=== PATIENT | male | born 1960 | race Caucasian/White ===

== ENCOUNTER → 2020-04-29 | Outpatient (CLI) | payer OTHER | LOC: MRI 09:49 | PROVIDERS: ATTEND Family Medicine | DX: I63.9 Cerebral infarction, unspecified (principal) ==

== ENCOUNTER 2021-03-08 14:23 | Inpatient (IN) | payer OTHER ==
[~2021-03-08] VITALS: Ht 172.7 cm; Wt 65.0 kg
[2021-03-08 14:34] VITALS: BP 136/89
[2021-03-08 15:49] LABS: HEMATOCRIT 44.1 % (42.0-52.0); HEMOGLOBIN 14.6 gm/dL (14.0-18.0); MCHC 33.1 g/dL (28.0-37.0); MCV 90.8 fL (80.0-100.0); PLATELET COUNT 226 thou/uL (150-400); RBC 4.85 mil/uL (4.50-6.00); RDW 13.6 % (10.5-14.5); WBC 22.2 thou/uL (4.0-11.0)
[2021-03-08 15:52] LABS: CREATININE 1.4 mg/dL (0.7-1.3); POTASSIUM 3.9 mmol/L (3.5-5.1)
--- NOTE | 2021-03-08 15:55 | EKG ---
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 : 1960 Requested By: Tyrell Ch Order Number: [id number] MD: Demetris Rasheed Measurements Intervals [place] Rate: 107 P: 66 SC: 127 QRS: 77 QRSD: 94 T: 21 QT: 335 QTc: 447 Interpretive Statements Sinus tachycardia Left atrial enlargement Probable left ventricular hypertrophy No previous ECG available for comparison Electronically Signed On 03-08-2021 15:55:17 CDT by Demetris Rasheed [email or web address] <ELECTRONICALLY SIGNED> By: Demetris Rasheed MD, [facility] 03/08/21 1555 1441 1441 Demetris Rasheed MD, FACC /EPI
[2021-03-08 16:03] LABS: ALBUMIN 3.6 g/dL (3.4-5.0); TOTAL PROTEIN 7.8 g/dL (6.4-8.2)
[2021-03-08 18:32] LABS: URINE BILIRUBIN NEGATIVE (Negative); URINE BLOOD NEGATIVE (Negative); URINE CLARITY CLEAR; URINE COLOR YELLOW; URINE GLUCOSE-RANDOM* NEGATIVE (Negative); URINE KETONES NEGATIVE (Negative); URINE LEUKOCYTES-REFLEX NEGATIVE (Negative); URINE NITRITE-REFLEX NEGATIVE (Negative); URINE PROTEIN (DIPSTICK) NEGATIVE (Negative); URINE SPECIFIC GRAVITY <= 1.005 (1.005-1.035); URINE UROBILINOGEN 0.2 E.U./dl (0.2-1.0)
[2021-03-08 18:48] LABS: ABSOLUTE NEUTROPHILS 19.3 thou/uL (1.4-8.2); LARGE PLATELETS RARE
[2021-03-08 18:49] LABS: PLATELET ESTIMATE NORMAL
[2021-03-08 19:52] VITALS: BP 123/76
[2021-03-08 19:57] VITALS: BP 123/76
[2021-03-08 22:20] VITALS: BP 116/74
[2021-03-08 23:00] VITALS: BP 119/74
[2021-03-09 00:20] VITALS: BP 121/72
[2021-03-09 03:42] VITALS: BP 132/86
--- NOTE | 2021-03-09 03:52 | NUR ---
PT WAS ADMITTED TO THE UNIT IN A STABLE CONDITION.PT C/O PAIN TO HIS ABD,MANAGED WITHMED.PT UP TO THE BR WITH A STEADY GAIT.3 LAP SITES WITH DERMABOND AND STERI STRIPS NOTED.DRIED BLOOD NOTED ON THE SITES.PT JOSE DAVID CLEAR LIQU[facility] ABD PER HIS REQUEST.PT ABLE TO MAKE HIS NEEDS KNOWN.CALL LIGHT WITHIN REACH.
[2021-03-09 08:03] VITALS: BP 134/83
--- NOTE | 2021-03-09 08:48 | NUR ---
High nutrition screen risk identified for wt loss 2-13 lb and decreased oral intake. Admit with perforated appendecitis, s/p surgical interventiion. Diet expected to advance. Healthy BMI 21.6. Presents low nutrition risk at this time
--- NOTE | 2021-03-09 09:01 | NUR ---
ASSESSMENT: CM REVIEWED CHART AND SPOKE WITH PATIENT AT THE BEDSIDE. PT IS ALERT AND ORIENTED X4. PT WAS ADMITTED DUE TO APPENDICITIS AND IS S/P LAP APPE. PT REPORTS THAT HE LIVES IN A HOUSE WITH HIS . PT REPORTS HAVING ABOUT 4 STEPS WITH NO HANDRAILS TO ENTER AND ABOUT 15 STEPS WITH A HANDRAIL TO HIS BEDROOMS. PT REPORTS BEING FULLY INDEPENDENT WITH ADLS AND AMBULATION. PT HAS NO HX OF HH OR SNF. PT REPORTS HIS PCP IS DR. KWOK. CM DISCUSSED ROLE. PT DOES NOT ANTICIPATE HAVING ANY NEEDS FROM CM. CM WILL CONTINUE TO FOLLOW TO ASSIST NEEDED.
[2021-03-09] MEDS ORDERED: SAW PALMETTO450 MG PO (09:26)
[2021-03-09] MEDS ORDERED: KLONOPIN0.5 MG PO (09:27)
[2021-03-09] MEDS ORDERED: PHENYTOIN SODI300 MG PO (09:29)
[2021-03-09] MEDS ORDERED: PHENYTOIN SODI200 MG PO ×2 (09:30)
[2021-03-09] MEDS ORDERED: PRAVACHOL 20 MG20 M1 PO (09:31)
[2021-03-09] MEDS ORDERED: TOPROL XL50 MG PO (09:31)
[2021-03-09] MEDS ORDERED: OMEPRAZOLE 20 M20 M1 PO (09:32)
[2021-03-09] MEDS ORDERED: ZYRTEC10 M4 PO (09:32)
[2021-03-09] MEDS ORDERED: TROKENDI XR200 MG PO (09:33)
[2021-03-09] MEDS ORDERED: FLEXERIL PO (09:33)
--- NOTE | 2021-03-09 10:14 | NUR ---
ASSUMED PT CARE THIS AM. PT IS ALERT & ORIENTED X4. PT HAS IV SITE ON RAC. PT IS UP AD WHITNEY. PT HAS 3 LAP SITES WITH DERMABOND/STERI STRIPS. UPDATED HOME MEDICATION LISTS AND INFORMED DR TO RESUME. PT IS ON ROOM AIR. PT C/O OF PAIN AND GIVEN PAIN MEDICATION PER PT REQUEST. WILL CONTINUE TO MONITOR PT. FOLLOW POC.
[2021-03-09 12:05] LABS: ABSOLUTE NEUTROPHILS 16.4 thou/uL (1.4-8.2); BASOPHILS 0.3 % (0.0-2.0); HEMATOCRIT 41.2 % (42.0-52.0); HEMOGLOBIN 13.4 gm/dL (14.0-18.0); LYMPHOCYTES 5.3 % (24.0-44.0); MCH 30.3 pg (26.0-34.0); MCHC 32.5 g/dL (28.0-37.0); MCV 93.1 fL (80.0-100.0); MONOCYTES 8.2 % (1.0-8.0); PLATELET COUNT 198 thou/uL (150-400); POLYS 86.2 % (36.0-66.0); RBC 4.43 mil/uL (4.50-6.00); RDW 13.5 % (10.5-14.5)
[2021-03-09 12:23] LABS: CALCIUM 8.9 mg/dL (8.5-10.1); CREATININE 1.3 mg/dL (0.7-1.3); MAGNESIUM 1.5 mg/dL (1.8-2.4)
[2021-03-09 16:32] VITALS: BP 137/88
[2021-03-09 17:37] VITALS: BP 126/79
[2021-03-09 21:00] VITALS: BP 144/87
--- NOTE | 2021-03-10 02:31 | NUR ---
ASSUMED CARE OF PT AT 1900. BEDSIDE REPORT RECIEVED. LISA ASSESSMENT COMPLETE. PT C/O ABDOMINAL DISCOMFORT BUT REPORTS TOELRABLE LEVEL. S/P APPENDECTOMY C 3 INCISION SITES C STERISTRIPS. CDI. MEDS ADMINISTERED PER MAR. IVF RUNNING PER SEP AT 75 ML/HR. PT UP AD WHITNEY C BRP. ABDOMEN IS TENDER TO TOUCH. BOWEL SOUNDS HYPOACTIVE, BOWEL MEDS ADMINSITERED. DENIES ANY OTHER NEEDS AT THIS TIME. CALL LIGHT IN REACH.
[2021-03-10 03:15] VITALS: BP 142/90
[2021-03-10 08:07] VITALS: BP 131/88
[2021-03-10 09:00] VITALS: BP 131/88
--- NOTE | 2021-03-10 09:39 | NUR ---
ASSUMED CARE OF PT AT 0700. PT SITTING UP IN BED. PT A&OX4. PT ABD INCISIONS X3, STERI STRIPS IN PLACE. DRIED DRAINAGE NOTED. PT TOLERATING REGULAR DIET. PT UP AD WHITNEY. CALL LIGHT WITHING REACH
--- NOTE | 2021-03-10 12:41 | NUR ---
SW reviewed chart and spoke with hospitalist. Pt is s/p lap appe. Pt is on IV abx. Discharge home is anticipated for later today or tomorrow. No discharge needs identified at this time. SW is following to assist should needs arise.
[2021-03-10 12:56] LABS: HEMATOCRIT 39.5 % (42.0-52.0); HEMOGLOBIN 13.2 gm/dL (14.0-18.0); MCH 30.4 pg (26.0-34.0); MCHC 33.3 g/dL (28.0-37.0); MCV 91.4 fL (80.0-100.0); RBC 4.32 mil/uL (4.50-6.00); RDW 13.4 % (10.5-14.5); WBC 15.1 thou/uL (4.0-11.0)
[2021-03-10 20:21] VITALS: BP 128/87
--- NOTE | 2021-03-11 03:17 | NUR ---
PT IS A/O X4 AND IS UP AD WHITNEY. ROOM AIR. VSS AFEBRILE. C/O ACID REFLUX, N/V. PHYSCIAN CONTACTED PER PT REQUEST FOR TUMS. PT APPEARS IRRITIBLE STATING ONE TUMS WILL NOT WORK. PT C/O N/V. PRN ZOFRAN GIVEN DIRECTED. CALL LIGHT IS WITHIN REACH. CALLS OUT APPROPRIATELY FOR ASSISTANCE. WILL CONTINUE TO MONITOR.
[2021-03-11 07:23] VITALS: BP 153/99
[2021-03-11 11:31] LABS: CREATININE 1.1 mg/dL (0.7-1.3)
[2021-03-11 11:37] LABS: CALCIUM 8.7 mg/dL (8.5-10.1); POTASSIUM 3.2 mmol/L (3.5-5.1)
[2021-03-11 12:02] LABS: TOTAL BILIRUBIN 0.6 mg/dL (0.2-1.0)
[2021-03-11 12:03] LABS: ALBUMIN 2.9 g/dL (3.4-5.0); DIRECT BILIRUBIN 0.3 mg/dL (<0.1-0.2); MAGNESIUM 1.9 mg/dL (1.8-2.4); PHOSPHORUS 2.5 mg/dL (2.6-4.7); TOTAL PROTEIN 6.5 g/dL (6.4-8.2)
--- NOTE | 2021-03-11 14:58 | NUR ---
ASSUMED PT AT 0700 THIS MORNING. PT IS 1DAY POST APPENDECTOMY. PT C/O ABD PAIN AND GAS WITH SOME CRAMPING. DR. MARIA WOULD LIKE THE PT TO STAY ONE MORE DAY. ASSESSMENTS NOTED IN CHART AND OTHERWISE UNREMARKABLE. IV IN RT AC WITH NS AT 75ML/HR. PT IS INDEP AND CAN WALK WHEN NEEDED. CALL LIGHT AND OTHER NEEDS ARE WITHIN REACH. MEDS AND TX GIVEN NEEDED AND SCHEDULED. WILL MONITOR AND NOTE ANY CHANGES.
[2021-03-11 20:06] VITALS: BP 158/119
[2021-03-11 21:31] LABS: ABSOLUTE NEUTROPHILS 8.7 thou/uL (1.4-8.2); BASOPHILS 0.6 % (0.0-2.0); EOSINOPHILS 0.7 % (0.0-3.0); HEMATOCRIT 37.9 % (42.0-52.0); HEMOGLOBIN 12.7 gm/dL (14.0-18.0); LYMPHOCYTES 7.8 % (24.0-44.0); MCH 30.5 pg (26.0-34.0); MCHC 33.6 g/dL (28.0-37.0); MCV 90.7 fL (80.0-100.0); MONOCYTES 11.2 % (1.0-8.0); PLATELET COUNT 271 thou/uL (150-400); POLYS 79.7 % (36.0-66.0); RBC 4.17 mil/uL (4.50-6.00); RDW 13.5 % (10.5-14.5); WBC 10.9 thou/uL (4.0-11.0)
--- NOTE | 2021-03-12 02:34 | NUR ---
PT OBSERVED SITTING UP BY HIS BEDSIDE RECEIVING HIS RT TX AT SHIFT CHANGE.PT DENIED PAIN SO FAR.PT ENCOURAGED TO USE HIS INCENTIVE SPIROMETER.LAP SITES DRY,DRIED BLOOD NOTED.NO C/O N/V NOTED SO FAR.PT ABLE TO MAKE HIS NEEDS KNOWN.CALL LIGHT WITHIN REACH.
[2021-03-12 03:51] VITALS: BP 174/106
[2021-03-12 05:35] LABS: ABSOLUTE NEUTROPHILS 7.4 thou/uL (1.4-8.2); BASOPHILS 0.7 % (0.0-2.0); EOSINOPHILS 1.4 % (0.0-3.0); HEMATOCRIT 37.6 % (42.0-52.0); HEMOGLOBIN 12.5 gm/dL (14.0-18.0); LYMPHOCYTES 10.6 % (24.0-44.0); MCHC 33.4 g/dL (28.0-37.0); MCV 89.9 fL (80.0-100.0); MONOCYTES 12.9 % (1.0-8.0); PLATELET COUNT 264 thou/uL (150-400); POLYS 74.4 % (36.0-66.0); RBC 4.18 mil/uL (4.50-6.00); RDW 13.6 % (10.5-14.5); WBC 9.9 thou/uL (4.0-11.0)
[2021-03-12 05:53] LABS: ALBUMIN 2.6 g/dL (3.4-5.0); CALCIUM 8.5 mg/dL (8.5-10.1); CREATININE 1.1 mg/dL (0.7-1.3); MAGNESIUM 1.6 mg/dL (1.8-2.4); PHOSPHORUS 2.8 mg/dL (2.5-4.9); POTASSIUM 3.3 mmol/L (3.5-5.1); TOTAL BILIRUBIN 0.4 mg/dL (0.2-1.0); TOTAL PROTEIN 6.4 g/dL (6.4-8.2)
[2021-03-12 06:08] LABS: CHOLESTEROL 105 mg/dL (<200); HDL CHOLESTEROL 37 mg/dL (>40); LDL CHOLESTEROL 44 mg/dL (<100); SERUM ASSESSMENT Clear; TC:HDL 2.8 Ratio (Not establshd); TRIGLYCERIDE 121 mg/dL (<150); VLDL 24 mg/dL (<40)
[2021-03-12 08:16] VITALS: BP 146/96
[2021-03-12] MEDS ORDERED: NORCO5 PO (14:02)
[2021-03-12] MEDS ORDERED: LEVOFLOXACIN500 MG PO (14:02)
--- NOTE | 2021-03-12 18:23 | O ---
[facility] [place] [address] OPERATIVE REPORT Name: RODRIGUEZ MILTON Room #: 437-P [facility] IN M.R.#: [id number] Admission: 03/08/21 Attend Phys: Azam Marinelli, Discharge: 03/12/21 Date of : 58 Report #: [id number] THIS REPORT FOR: cc: Mao Childress James A. DO Patterson, Jonathan D. MD ~ DATE OF SERVICE: 03/08/2021 PREOPERATIVE DIAGNOSIS: Perforated appendicitis. POSTOPERATIVE DIAGNOSIS: Perforated appendicitis. OPERATION: Laparoscopic appendectomy. SURGEON: Azam Marinelli MD ANESTHESIA: General. ESTIMATED BLOOD LOSS: Minimal. SPECIMENS: Appendix. DESCRIPTION OF PROCEDURE: After informed consent was obtained, the patient was brought to the operating room and placed supine. Preoperatively, I discussed the risks of surgery which included infection, bleeding, damage to the surrounding structures, and postoperative abscess given that this was a perforated appendicitis. We also discussed bleeding and he is higher risk given his use of Plavix. However, this operation was necessary to prevent abdominal sepsis. General anesthesia was induced. The abdomen was prepped and draped in the usual sterile fashion. A 10-mm incision was made below the umbilicus. Fascia was incised and a trocar was placed. Pneumoperitoneum was established. A right upper quadrant and left lower quadrant 5-mm trocars were placed. The right lower quadrant was examined. He had pus in the right pericolic gutter. I was able to identify the appendix. It was gangrenous. It was grasped and retracted anteriorly gently. I was able to dissect away the mesoappendix using a LigaSure. The mesoappendix was ligated using the LigaSure device. There was good hemostasis. Lateral attachments of the cecum were taken down using cautery. I was able to identify the base of the appendix, which was somewhat healthy. This was stapled off with a CHRIS vargas load stapler. There was good hemostasis. The appendix was then placed into an Endopouch and removed. The fascia was then closed with a afizup-cm-hnugm 0 Vicryl. Skin was closed with 4-0 Monocryl. Incisions were dressed with Steri-Strips. COMPLICATIONS: None. [address] [address] OPERATIVE REPORT Name: RODRIGUEZ MILTON Room #: 437-P [facility] IN [facility].#: [id number] Admission: 03/08/21 Attend Phys: Azam Marinelli, Discharge: 03/12/21 Date of : 58 Report #: [id number] DISPOSITION: The patient was taken to recovery in satisfactory condition. <ELECTRONICALLY SIGNED> By: Azam Marinelli MD 03/12/21 1823 07 14 Azam Marinelli MD /nt
--- NOTE | 2021-03-14 07:34 | EKG ---
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 : 1960 Requested By: Charlette Gutierrez Order Number: [id number] MD: Demetris Rasheed Measurements Intervals [place] Rate: 90 P: 31 [place]: 137 QRS: 43 QRSD: 94 T: 4 QT: 381 QTc: 467 Interpretive Statements Sinus rhythm Borderline T wave abnormalities Compared to ECG 03/08/2021 14:41:18 T-wave abnormality now present Sinus tachycardia no longer present Atrial abnormality no longer present Electronically Signed On 03-14-2021 7:34:30 CDT by Demetris Rasheed [email or web address] <ELECTRONICALLY SIGNED> By: Demetris Rasheed MD, [facility] 03/14/21 0734 1448 1448 Demetris Rasheed MD, [facility] /EPI
--- NOTE | 2021-03-14 07:36 | EKG ---
[address] [address] ELECTROCARDIOGRAM REPORT Name: KARINERODRIGUEZ DORCAS Room #: 437-P 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 : 1960 Requested By: Charlette Gutierrez Order Number: [id number] MD: Demetris Rasheed Measurements Intervals [place] Rate: 94 P: 33 SC: 133 QRS: 38 QRSD: 94 T: -7 QT: 384 QTc: 481 Interpretive Statements Sinus rhythm Borderline T abnormalities, inferior leads Borderline prolonged QT interval Artifact in lead(s) I,aVR Compared to ECG 03/11/2021 14:48:46 No significant changes Electronically Signed On 03-14-2021 7:36:16 CDT by Demetris Rasheed [email or web address] <ELECTRONICALLY SIGNED> By: Demetris Rasheed MD, [facility] 03/14/21 0736 0754 0754 Demetris Rasheed MD, [facility] /EPI
--- NOTE | 2021-03-14 18:06 | PATH ---
[facility] [address] [place] [address] PATHOLOGY RPT PROCEDURE Name: MARVIN MILTON Room #: 437-P [facility] IN M.R.#: [id number] Admission: 03/08/21 Date of : 58 Discharge: 03/12/21 Report #: [id number] Path Case #: [id number] [facility] Accession Number: [id number] . 01 Material submitted: . appendix - APPENDIX . 01 Clinical history: . LAPAROSCOPIC APPENDECTOMY RUPTURED APPENDICITIS . 02 Diagnosis: Appendix, appendectomy: - Marked acute appendicitis along with marked acute serositis. (IUV/db; 03/14/2021) LBQ 03/14/2021 1117 Local . 02 Electronically signed: . Marleen Driver MD, Pathologist NPI- [id number] . 01 Gross description: . Fixative: Formalin Labeled: Marvin Milton, appendix Perforation: 0.5 x 0.4 cm Appendix size: 7.2 cm in length by 0.8 cm in diameter Mesoappendix: Moderate Proximal margin: Inked black Serosa: [place], dusky and hemorrhagic with overlying fibrinous exudate, the serosa surrounding the perforation is inked blue Mucosa: [place]-lee and hemorrhagic Luminal diameter: Ranges from 0.1 cm to 0.7 cm Wall thickness: Ranges from 0.2 cm to 0.4 cm Lesions/abnormalities: A fecalith (1.0 x 0.7 x 0.7 cm) A1-A3: Multi Slide Machine Tender sections of appendix to include the entirely of the proximal margin (submitted en face) in A1 and the entirety of distal tip. (WAMPANOAG; 03/09/2021) JOÃOA/NOY 03/09/2021 1806 Local . 02 Pathologist provided ICD-10: K35.20 . 02 CPT . 473634 Specimen Comment: A courtesy copy of this report has been sent to [phone], [phone] Specimen Comment: [id number] [place] [address] PATHOLOGY RPT PROCEDURE Name: MARVIN MILTON Room #: 437-P [facility] IN M.R.#: [id number] Admission: 03/08/21 Date of : 58 Discharge: 03/12/21 Report #: [id number] Path Case #: [id number] Specimen Comment: Report sent to / DR D'MARCUS Performed at: [address] [facility] [address], [place], [place] [id number] MD Gadiel Romero MD Phone: [phone] Performed at: [address] [facility] [id number] MD Marleen Driver MD Phone: [phone]
== END 2021-03-12 14:29 | disposition home or self-care (01) | DRG 339 ==
LOC: ER 14:23 → 4S 17:22 → EROBS 17:22 → 4S 22:40
PROVIDERS: Emergency Medicine; Hospitalist; Internal Medicine; Nurse Practitioner; ADMIT Surgery; ATTEND Surgery
PROC: 0DTJ4ZZ Resection of Appendix, Percutaneous Endoscopic Approach (ICD-10-PCS; principal; 2021-03-08)
DX: K35.32 Acute appendicitis with perforation, localized peritonitis, and gangrene, without abscess (principal); N17.9 Acute kidney failure, unspecified; K56.7 Ileus, unspecified; Z20.822 Contact with and (suspected) exposure to COVID-19; Z79.899 Other long term (current) drug therapy; Z88.8 Allergy status to other drugs, medicaments and biological substances; I12.9 Hypertensive chronic kidney disease with stage 1 through stage 4 chronic kidney disease, or unspecified chronic kidney disease; N18.30 Chronic kidney disease, stage 3 unspecified; E87.6 Hypokalemia; E83.39 Other disorders of phosphorus metabolism; G40.909 Epilepsy, unspecified, not intractable, without status epilepticus; F17.210 Nicotine dependence, cigarettes, uncomplicated; Z86.73 Personal history of transient ischemic attack (TIA), and cerebral infarction without residual deficits
CPT/HCPCS: 10100; 10195; 50101; 50411; 50555; 50739; 50740; 51489; 52265; 52266; 53307; 53312; 53314; 56462; 56525; 56526; 58574; 58586; 58867; 62110; 62900; 70005